=== PATIENT | female | born 1990 | race Caucasian/White ===

== ENCOUNTER 2025-04-20 23:23 | Emergency (ER) | payer OTHER ==
[2025-04-21] MEDS: Ketorolac 30 MG/ML SDV IM ONE (00:40)
== END 2025-04-21 01:40 | disposition home or self-care (01) ==
LOC: JD.ED 23:23
DX: M25.561 Pain in right knee (principal); Z91.018 Allergy to other foods; Z91.040 Latex allergy status
CPT/HCPCS: 73562; 96372; 99283; J1885